=== PATIENT | male | born 1975 | race Caucasian/White ===

== ENCOUNTER 2021-04-13 17:10 | Emergency (ER) | payer BC, SELFPAY ==
--- NOTE | ~2021-04-13 | XR_ITS ---
Examination: XR sacrum coccyx min 2V, XR lumbar spine 2-3V Indication: s/p fall c pain to lower back and coccyx Comparison: 04/09/2008 Technique: 3 views of the lumbosacral spine with 3 views of the sacrum and coccyx Findings: Bones are in normal anatomic alignment. I do not appreciate any acute fracture or spondylolisthesis. There are 5 lumbar-type vertebra noted. No significant step-off. Bowel gas pattern unremarkable. XR/XR lumbar spine 2-3V Impression: No acute fracture or spondylolisthesis appreciated.
--- NOTE | ~2021-04-13 | XR_ITS ---
Examination: XR sacrum coccyx min 2V, XR lumbar spine 2-3V Indication: s/p fall c pain to lower back and coccyx Comparison: 04/09/2008 Technique: 3 views of the lumbosacral spine with 3 views of the sacrum and coccyx Findings: Bones are in normal anatomic alignment. I do not appreciate any acute fracture or spondylolisthesis. There are 5 lumbar-type vertebra noted. No significant step-off. Bowel gas pattern unremarkable. XR/XR sacrum coccyx min 2V Impression: No acute fracture or spondylolisthesis appreciated.
[2021-04-13 17:26] VITALS: BP 138/88; PULSE 90; RESP 18; TEMP 36.5; O2SAT 96; BMI 29.8
--- NOTE | 2021-04-13 17:56 | ED_ITS ---
HPI - Fall General Chief Complaint: Fall Stated Complaint: fall Time Seen by Provider: 04/13/21 17:35 Source: patient Mode of arrival: ambulatory Limitations: no limitations History of Present Illness HPI Narrative: 46-year-old male presenting to the ED with complaints of lower back pain and coccyx pain after he had a mechanical fall where he slipped and fell in [facility] earlier today on the slippery floor. He denies head injury or loss of consciousness. He denies any symptoms prior to the fall. He reports only pain after a fall no other symptoms. He is not on any blood thinners. MD complaint: fall Onset (ago): minute(s) (Earlier today prior to arrival) Fall from: standing Fall witnessed: no Place fall occurred: other Loss of consciousness: none Prolonged down time: no Symptoms prior to fall: none Context: tripped/slipped Location of injury: back and buttocks Severity: moderate Quality: aching Associated symptoms (after fall): denies Related Data Previous Rx's Medication Instructions Recorded acetaminophen 500 mg tablet 1,000 mg PO QID PRN #14 tab 04/13/21 (Tylenol Extra Strength) cyclobenzaprine 10 mg tablet 10 mg PO Q8H #10 tab 04/13/21 ibuprofen 800 mg tablet 800 mg PO Q8H PRN #14 tab 04/13/21 Allergies Allergy/AdvReac Type Severity Reaction Status Date / Time amoxicillin [Amoxicillin] Allergy Unknown HIVES Unverified 04/25/20 15:51 Review of Systems Review of Systems: Constitutional : No trauma, No Weight loss, No Fever, No Chills, ENT/Mouth : No Hearing loss, No Ear Pain, No Nasal Congestion, No Sinus Pain, No Hoarseness, No sore throat, No Rhinorrhea, No Swallowing Difficulty Cardiovascular : No Chest Pain, No SOB Respiratory : No Cough, No Dyspnea Gastrointestinal : No Nausea, No Vomiting, No Diarrhea, No abdominal Pain, No Hematochezia, No Melena Genitourinary : No Dysuria, No Urinary Frequency, No Hematuria, No Urinary or Bowel Incontinence/retention Musculoskeletal : + Back/coccyx pain/injury No neck pain, No joint stiffness, No joint swelling Skin : No Skin Lesions, No rash or signs of infection Neuro : No Weakness, No radiation, No Numbness, No Paresthesias, No headache, no loss of bowel or bladder incontinence, no saddle anesthesia, Focal weakness, No radiation Denies history of IV drug usage. Yes all other systems are reviewed and are n egative [facility] Past Medical History Attestation statement: The following information was validated with the patient. Medical History No known health problems Social History Social History Advance Directives: No Advance Directives Information Provided: No Physical Exam Vital Signs: Vital Signs: Last Vital Signs Temp 97.7 F 04/13/21 17:26 Pulse 90 04/13/21 17:26 Resp 18 04/13/21 17:26 BP 138/88 04/13/21 17: Pulse Ox 96 04/13/21 17:26 Body Mass Index 29.8 vital signs have been reviewed as normal and appeared to be correct. Blood pressure normal. Heart rate normal. Respiration rate normal. Temperature normal. Oxygen saturation normal. Appearance: Alert. Oriented X3. No acute distress. Head: Normal external exam. Normocephalic. Atraumatic. Eyes: PERRLA. EOMI. Conjunctiva and sclera normal. Eyelids normal. ENT: Pharynx normal. Uvula midline. Moist mucous membranes. Neck: Normal inspection. Neck supple. FROM. No meningeal signs. CVS: Normal heart rate and rhythm. Respiratory: No respiratory distress. Painless inspiration. Back: Full range of motion noted. No obvious deformities, or edema. Mild para- spinal muscular tenderness from lumbar region to coccyx. Full ROM in back and lower extremities. 5/5 strength hip extension/flexion, abduction, adduction. Mild Lumbar pain with hip flexion against resistance. Straight leg raise test negative on right; Straight leg raise test negative on left; Reflexes normal ankle and knee bilaterally; EHL motor strength normal bilaterally. No rashes/lesion/induration/fluctuance or signs infection noted. Skin: Skin warm and dry. Normal skin color. Normal skin turgor. No rashes/lesions/lacerations noted. Extremities: Extremities exhibit normal range of motion. Extremities nontender. Neuro: Oriented X 3. No motor deficit. No sensory deficit. Reflexes normal. Patient has a normal steady gait. Course Course Course Narrative: 46-year-old male presenting to the ED after he had a mechanical fall where he slipped and fell on slippery floor at [facility] earlier today/prior to arrival injuring his lower back/coccyx area since then has been having pain. Denies head injury or loss of consciousness or any other injuries complaints or concerns. Not on any blood thinners. X-rays obtained and negative for any acute processes only revealed chronic changes. Will DC home with symptomatic treatment and instructions return if any new or worsening symptoms to follow up with primary care provider. Patient understands agrees with this plan. MDM - Fall Medical Records Attestation: I reviewed the patient's medical records. Imaging Data Lumbar spine/coccyx x-ray: Attestation: I personally reviewed and interpreted this imaging study as follows: Radiologist's impression: Examination: XR sacrum coccyx min 2V, XR lumbar spine 2-3V Indication: s/p fall c pain to lower back and coccyx Comparison:? 04/09/2008 Technique: 3 views of the lumbosacral spine with 3 views of the sacrum and coccyx Findings: Bones are in normal anatomic alignment. I do not appreciate any acute fracture or spondylolisthesis. There are 5 lumbar-type vertebra noted. No significant step-off. Bowel gas pattern unremarkable. XR/XR sacrum coccyx min 2V Impression: No acute fracture or spondylolisthesis appreciated. Discharge Plan Discharge Clinical Impression: Fall, Lumbar strain, Strain of coccyx Patient Disposition: Home, Self-Care Instructions: Coccyx Injury (ED), Low Back Strain (ED), R.I.C.E. Treatment (ED) Prescriptions: New cyclobenzaprine 10 mg tablet 10 mg PO Q8H Qty: 10 RF: 0 ibuprofen 800 mg tablet 800 mg PO Q8H PRN (Reason: pain) Qty: 14 RF: 0 acetaminophen [Tylenol Extra Strength] 500 mg tablet 1,000 mg PO QID PRN (Reason: fever or pain) Qty: 14 RF: 0 Referrals: Physician,Unknown [Primary Care Provider] - 2 days (your pcp) Print Language: Mozambican
== END 2021-04-13 18:55 | disposition home or self-care (01) ==
PROVIDERS: Emergency Provider Internal Medicine
DX: S39.012A Strain of muscle, fascia and tendon of lower back, initial encounter (principal); M53.3 Sacrococcygeal disorders, not elsewhere classified; W01.0XXA Fall on same level from slipping, tripping and stumbling without subsequent striking against object, initial encounter; Y93.9 Activity, unspecified; Y92.511 Restaurant or cafe as the place of occurrence of the external cause; Y99.9 Unspecified external cause status; Z79.899 Other long term (current) drug therapy
CPT/HCPCS: 72100; 72220; 99283

== ENCOUNTER 2022-05-20 20:46 | Inpatient (IN) | payer BC, SELFPAY ==
--- NOTE | ~2022-05-20 | CT_ITS ---
EXAMINATION: CT ANGIOGRAM HEAD CT ANGIOGRAM NECK CLINICAL INFORMATION: Right facial droop COMPARISON: CT head without contrast 10/29/2018 TECHNIQUE: Initial noncontrast manager trading imaging of the head and neck was performed. Noncontrast head CT was also performed. Test bolus sequences followed by intravenous administration 70 mL of Omnipaque 350. Helical imaging was performed in the axial plane from the aortic arch to the skull vertex. Delayed postcontrast imaging of the head was also performed. The data was processed at the chief radiologic technologist's workstation for generation of MIP sequences. Angled MIPs and volume rendered reformatted images were also generated at an offline 3D workstation. Stenoses are assessed in accordance with NASCET criteria unless otherwise indicated. DLP: 1615 mGy-cm This CT examination was performed using dose optimization techniques as appropriate, variously including the following: *Automated exposure control. *Adjustment of mA and/or kV according to patient size (this includes techniques or standardized protocols for targeted exams where dose is matched to indication/reason for exam; i.e. extremities or head). *Use of iterative reconstruction technique. FINDINGS: CT Head: There is no evidence of acute intracranial hemorrhage or edematous territorial infarction. There is no abnormal attenuation within the brain parenchyma. Willard-white matter differentiation is preserved. The ventricles are normal in size and configuration. No evidence for obstructive hydrocephalus. No abnormal mass effect or midline shift. No extra-axial fluid collections. Left temporal lobe parenchymal calcification. No pathologic intra-axial enhancement or regional oligemia. No acute soft tissue or osseous abnormalities. Mild mucosal thickening in the alveolar recess of the right maxillary sinus. CT Neck: The thyroid gland and remaining cervical soft tissues are within normal limits. Mild degenerative changes of the cervical spine. CT Upper Chest: The visualized lung apices and upper mediastinum are within normal limits. Neck CTA: Aortic Arch: Normal contour and caliber. Classic 3 vessel branching pattern of the aortic arch. Great Vessel Origins: No significant stenosis of the branch origins. Right Common Carotid Artery: No focal stenosis or occlusion. Cervical Right Internal Carotid Artery: Normal opacification without focal stenosis or occlusion. Left Common Carotid Artery: No focal stenosis or occlusion. Cervical Left Internal Carotid Artery: Normal opacification without focal stenosis or occlusion. Cervical Right Vertebral Artery: No focal stenosis or occlusion. Cervical Left Vertebral Artery: No focal stenosis or occlusion. Brain CTA: Intracranial Internal Carotid Arteries: No focal stenosis or occlusion. Right Anterior Cerebral Artery: Normal A1 segment. Normal opacification of the distal TANA segments. Left Anterior Cerebral Artery: Normal A1 segment. Normal opacification of the distal TANA segments. Anterior Communicating Artery: Normal. Right Middle Cerebral Artery: Normal M1 segment of the MCA without focal stenosis or occlusion. Normal arborization of the distal segments. Left Middle Cerebral Artery: Normal M1 segment of the MCA without focal stenosis or occlusion. Normal arborization of the distal segments. Right Vertebral Artery: Normal V4 segment. Left Vertebral Artery: Normal V4 segment. Basilar Artery: Normal without focal stenosis or occlusion. Normal appearance of the proximal superior cerebellar arteries. Right Posterior Cerebral Artery: Normal P1 segment. Normal opacification of the distal LEAD DESIGNER segments. Left Posterior Cerebral Artery: Normal P1 segment. Normal opacification of the distal LEAD DESIGNER segments. Normal opacification of the superior sagittal, straight, transverse, and sigmoid sinuses. CT/CT head for stroke IMPRESSION: 1. No acute intracranial abnormality including hemorrhage, mass effect, hydrocephalus, or acute territorial edematous infarction. 2. No arterial high grade stenosis or large vessel occlusion in the head or neck. Above impression was communicated to Dr. Cueto on 05/20/2022 at 11:01 PM
--- NOTE | ~2022-05-20 | CT_ITS ---
EXAMINATION: CT ANGIOGRAM HEAD CT ANGIOGRAM NECK CLINICAL INFORMATION: Right facial droop COMPARISON: CT head without contrast 10/29/2018 TECHNIQUE: Initial noncontrast optical effects layout person imaging of the head and neck was performed. Noncontrast head CT was also performed. Test bolus sequences followed by intravenous administration 70 mL of Omnipaque 350. Helical imaging was performed in the axial plane from the aortic arch to the skull vertex. Delayed postcontrast imaging of the head was also performed. The data was processed at the certified surgical technologist's workstation for generation of MIP sequences. Angled MIPs and volume rendered reformatted images were also generated at an offline 3D workstation. Stenoses are assessed in accordance with NASCET criteria unless otherwise indicated. DLP: 1615 mGy-cm This CT examination was performed using dose optimization techniques as appropriate, variously including the following: *Automated exposure control. *Adjustment of mA and/or kV according to patient size (this includes techniques or standardized protocols for targeted exams where dose is matched to indication/reason for exam; i.e. extremities or head). *Use of iterative reconstruction technique. FINDINGS: CT Head: There is no evidence of acute intracranial hemorrhage or edematous territorial infarction. There is no abnormal attenuation within the brain parenchyma. Willard-white matter differentiation is preserved. The ventricles are normal in size and configuration. No evidence for obstructive hydrocephalus. No abnormal mass effect or midline shift. No extra-axial fluid collections. Left temporal lobe parenchymal calcification. No pathologic intra-axial enhancement or regional oligemia. No acute soft tissue or osseous abnormalities. Mild mucosal thickening in the alveolar recess of the right maxillary sinus. CT Neck: The thyroid gland and remaining cervical soft tissues are within normal limits. Mild degenerative changes of the cervical spine. CT Upper Chest: The visualized lung apices and upper mediastinum are within normal limits. Neck CTA: Aortic Arch: Normal contour and caliber. Classic 3 vessel branching pattern of the aortic arch. Great Vessel Origins: No significant stenosis of the branch origins. Right Common Carotid Artery: No focal stenosis or occlusion. Cervical Right Internal Carotid Artery: Normal opacification without focal stenosis or occlusion. Left Common Carotid Artery: No focal stenosis or occlusion. Cervical Left Internal Carotid Artery: Normal opacification without focal stenosis or occlusion. Cervical Right Vertebral Artery: No focal stenosis or occlusion. Cervical Left Vertebral Artery: No focal stenosis or occlusion. Brain CTA: Intracranial Internal Carotid Arteries: No focal stenosis or occlusion. Right Anterior Cerebral Artery: Normal A1 segment. Normal opacification of the distal TANA segments. Left Anterior Cerebral Artery: Normal A1 segment. Normal opacification of the distal TANA segments. Anterior Communicating Artery: Normal. Right Middle Cerebral Artery: Normal M1 segment of the MCA without focal stenosis or occlusion. Normal arborization of the distal segments. Left Middle Cerebral Artery: Normal M1 segment of the MCA without focal stenosis or occlusion. Normal arborization of the distal segments. Right Vertebral Artery: Normal V4 segment. Left Vertebral Artery: Normal V4 segment. Basilar Artery: Normal without focal stenosis or occlusion. Normal appearance of the proximal superior cerebellar arteries. Right Posterior Cerebral Artery: Normal P1 segment. Normal opacification of the distal LITIGATION LEGAL ASSISTANT segments. Left Posterior Cerebral Artery: Normal P1 segment. Normal opacification of the distal LITIGATION LEGAL ASSISTANT segments. Normal opacification of the superior sagittal, straight, transverse, and sigmoid sinuses. CT/CT angio head neck stroke IMPRESSION: 1. No acute intracranial abnormality including hemorrhage, mass effect, hydrocephalus, or acute territorial edematous infarction. 2. No arterial high grade stenosis or large vessel occlusion in the head or neck. Above impression was communicated to Dr. Cueto on 05/20/2022 at 11:01 PM
--- NOTE | ~2022-05-20 | MR_ITS ---
MRI OF THE BRAIN WITHOUT IV CONTRAST INDICATION: Stroke. COMPARISON: Head CT and CTA head and neck May 20, 2022. TECHNIQUE: Multiplanar multisequence MR imaging of the brain was obtained without IV contrast. FINDINGS: There is no hydrocephalus, extra-axial surface collection, or herniation. No parenchymal signal abnormality. The major flow voids at the skull base are preserved. There is no acute infarct on diffusion-weighted imaging. There is no intracranial hemorrhage on the gradient recalled echo acquisition. 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 The cerebellar tonsils are normally positioned. The cerebellum and brainstem are normal. The craniocervical junction is normal. Osseous marrow signal intensity is homogenous. The visualized soft tissues are unremarkable. MR/MR head/brain wo con IMPRESSION: - No acute intracranial findings. No acute infarcts. 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
[2022-05-20 22:02] VITALS: BP 139/84; PULSE 91; RESP 16; TEMP 36.6; O2SAT 96; BMI 29.1
--- NOTE | 2022-05-20 22:30 | ECG_ITS ---
Test Reason : ?STROKE Blood Pressure : / mmHG Vent. Rate : 105 BPM Atrial Rate : 105 BPM P-R Int : 162 ms QRS Dur : 090 ms QT Int : 318 ms P-R-T Axes : 041 002 -03 degrees QTc Int : 420 ms Sinus tachycardia Otherwise normal ECG No previous ECGs available Referred By: Britt Cueto Electronically Signed By:SCHUYLER RIVERA MD
--- NOTE | 2022-05-20 22:32 | ED.GENADULT ---
HPI - General Adult General Chief complaint: General Medical Stated complaint: losing movement in side of face Time Seen by Provider: 05/20/22 22:23 Source: patient Mode of arrival: ambulatory Limitations: no limitations History of Present Illness HPI narrative: Patient comes emergency room complaining numbness and tingling on the right side of the face, right-sided mouth drooping. 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 Patient denies any other motor deficits. Patient states he noticed the facial asymmetry 3 hours ago, at 19:30. Patient states that while he was in the waiting room, the facial asymmetry actually improved. Related Data Previous Rx's Medication Instructions Recorded acetaminophen 500 mg tablet 1,000 mg PO QID PRN fever or pain 04/13/21 (Tylenol Extra Strength) #14 tabs cyclobenzaprine 10 mg tablet 10 mg PO Q8H Muscle spasm #10 tabs 04/13/21 ibuprofen 800 mg tablet 800 mg PO Q8H PRN pain #14 tabs 04/13/21 Allergies Allergy/AdvReac Type Severity Reaction Status Date / Time amoxicillin [Amoxicillin] Allergy Unknown HIVES Unverified 04/25/20 15:51 Review of Systems Review of Systems: Constitutional : No Weight loss, No Fever, No Chills, No Night Sweats, No Fatigue, No Malaise ENT/Mouth : No Hearing loss, No Ear Pain, No Nasal Congestion, No Sinus Pain, No Hoarseness, No sore throat, No Rhinorrhea, No Swallowing Difficulty Eyes: No Eye Pain, No Swelling, No Redness, No Foreign Body, No Discharge, No Vision Changes Cardiovascular : No Chest Pain, No SOB, No Dyspnea on Exertion, No Orthopnea, No Edema, No Palpitations Respiratory : No Cough, No Sputum, No Wheezing, No Smoke Exposure, No Dyspnea Gastrointestinal : No Nausea, No Vomiting, No Diarrhea, No Constipation, No abdominal Pain, No Hematochezia, No Melena Genitourinary : no irregular bleeding, No Dysuria, No Urinary Frequency, No Hematuria, No Urinary Incontinence, No Urgency, No Flank Pain, No Urinary Flow Changes, No Hesitancy Musculoskeletal : No joint pain, No Myalgias, No Joint Swelling Skin : No Skin Lesions, No rash Neuro : No Weakness, numbness on the right side of the face, drooping on the right side of the face Psych : No Anxiety/Panic, No Depression, No SI/HI/AH/VH, No Social Issues, Heme/Lymph: No Bruising, No Bleeding,No Lymphadenopathy Endocrine : No Polyuria, No Polydipsia, No Temperature Intolerance [facility] Past Medical History Medical History No known health problems Social History Social History Advance Directives: No Advance Directives Information Provided: Yes Physical Exam ED Vital Signs: Vital Signs - 24 hr 05/20/22 22:02 05/20/22 23:11 Temperature 97.8 F 98.7 F Pulse Rate 91 93 Respiratory Rate 16 16 Blood Pressure 139/84 128/81 Pulse Oximetry 96 95 Oxygen Delivery Method Room Air Room Air BMI result Body Mass Index 29.1 Const Other: Appearance: Alert. Oriented X3. No acute distress. Eyes: Pupils equal, round and reactive to light. ENT: Pharynx normal. Neck: Normal inspection. Neck supple. No lymph nodes noted. No crepitus CVS: Normal heart rate and rhythm. Pulses normal. Normal S1 and S2 Respiratory: No respiratory distress. Breath sounds normal. No Wheezing. No rales Abdomen: Soft and nontender. No rigidity. No distention. Skin: Skin warm and dry. Normal skin color. Normal skin turgor. Extremities: No lower extremity edema. No Lacerations. No Rash Neuro: Oriented X 3. No motor deficit. No sensory deficit. Moving all extremities. No slurred speech. Patient has a symmetric smile, patient has [id number] mouth drooping on the right side. Patient is able to move his forehead bilaterally and wrinkles are present bilaterally. When patient is asked to close his eyes and tighten up, seems that he has more strength on the left side than the right Psych: calm, cooperative, normal affect NIH Stroke Scale Internal: Initial- Upon Arrival Level of Consciousness: Alert Level of Consciousness Questions: Answers both questions correctly Level of Consciousness Commands: Performs both tasks correctly Best Gaze: Normal Visual: No visual loss Facial Palsy: Minor paralyis Motor Arm (Right): No drift Motor Arm (Left): No drift Motor Leg (Right): No drift Motor Leg (Left): No drift Limb Ataxia: Absent Sensory: Normal Best Language: No aphasia Dysarthia: Normal Extinction and Inattention: No abnormality Score: 1 Course Course Course Narrative: Briefly, Velez's palsy affects half of the face. However, patient is able to move his eyebrow and wrinkle his forehead bilaterally, also, patient states that the mouth drooping on the right side of his face has gradually improved over the last hour. This is more concerning of a stroke rather than Velez's palsy. Patient's CT and CT I are both negative. However, patient's symptoms are slowly resolving especially the facial drooping. Also, patient is able to move his forehead on the right side and eyebrow, not as well as the left side. I discussed the patient with Dr. Henriquez, patient's NIH is 1, deficits are minimal, no need for tPA. Symptoms are overlapping between Velez's palsy and TIA. Recommendations: Admit for MRI in the morning. Also, patient is being treated for Vleez's palsy with acyclovir p.o., prednisone p.o.. Medical Decision Making Lab Data Result diagrams: 05/20/22 22:37 05/20/22 22:37 Labs: Lab Results 05/20/22 05/20/22 05/20/22 Range/Units 22:35 22:36 22:37 WBC (4.8-10.8) X10*3/uL RBC (4.60-5.80) X10*6/uL Hgb (14.0-18.0) g/dl Hct (42.0-52.0) % MCV (80.0-98.0) fL MCH (27.0-33.0) pg MCHC (31.0-36.0) g/dl RDW (11.0-16.0) % Plt Count (160-400) X10*3/uL MPV (9.4-12.4) fL Immature Gran % (Auto) (0.0-0.4) % Neut % (Auto) (45-73) % Lymph % (Auto) (20-40) % Dickenson % (Auto) (2-11) % Eos % (Auto) (0-4) % Baso % (Auto) (0-2) % Lymph # (Auto) (1.2-4.9) X10*3/uL Dickenson # (Auto) (0.1-1.2) X10*3/uL Eos # (Auto) (0.0-0.4) X10*3/uL Baso # (Auto) (0.0-0.2) X10*3/uL Abs Immat Gran (auto) (0.00-0.03) X10*3/uL Absolute Neuts (auto) (2.0-8.3) x10*3/uL Absolute Nucleated RBC (0.0-0.012) X10*3/uL Nucleated RBC % (auto) (0.0-0.2) /100WBC Whole Blood PT 12.0 (11.1-13.5) sec Whole Blood INR 1.0 (0.9-1.1) Sodium 141 (135-145) mmol/L Potassium 4.1 (3.3-5.1) mmol/L Chloride 104 (96-108) mmol/L Carbon Dioxide 25 (22-29) mmol/L Anion Gap 16 (12-20) BUN 16 (9-16) mg/dL Creatinine 0.94 (0.5-1.4) mg/dL Estim Creat Clear Calc 118.8 Estimated GFR > 60 POC Glucose 90 (60-115) mg/dL Random Glucose 96 (60-115) mg/dL Calcium 10.1 (8.4-10.2) mg/dL Total Bilirubin 1.0 (0.0-1.0) mg/dL Direct Bilirubin (0.0-0.5) mg/dL AST 17 (5-37) U/L ALT 18 (0-40) U/L Alkaline Phosphatase 67 (39-117) U/L Troponin I High Sens (<3.5-35.0) ng/L Total Protein 7.7 (6.5-8.0) g/dL Albumin 4.6 (3.5-5.0) g/dL Ethyl Alcohol mg/dL COVID-19 ([facility]) (Negative) COVID-19 Clin Com 05/20/22 05/20/22 05/20/22 Range/Units 22:37 22:37 22:37 WBC 9.5 (4.8-10.8) X10*3/uL RBC 5.20 (4.60-5.80) X10*6/uL Hgb 16.6 (14.0-18.0) g/dl Hct 48.4 (42.0-52.0) % MCV 93.1 (80.0-98.0) fL MCH 31.9 (27.0-33.0) pg MCHC 34.3 (31.0-36.0) g/dl RDW 12.8 (11.0-16.0) % Plt Count 278 (160-400) X10*3/uL MPV 10.2 (9.4-12.4) fL Immature Gran % (Auto) 0.6 H (0.0-0.4) % Neut % (Auto) 58.4 (45-73) % Lymph % (Auto) 21.0 (20-40) % Dickenson % (Auto) 13.0 H (2-11) % Eos % (Auto) 5.5 H (0-4) % Baso % (Auto) 1.5 (0-2) % Lymph # (Auto) 2.0 (1.2-4.9) X10*3/uL Dickenson # (Auto) 1.2 (0.1-1.2) X10*3/uL Eos # (Auto) 0.5 H (0.0-0.4) X10*3/uL Baso # (Auto) 0.1 (0.0-0.2) X10*3/uL Abs Immat Gran (auto) 0.06 H (0.00-0.03) X10*3/uL Absolute Neuts (auto) 5.5 (2.0-8.3) x10*3/uL Absolute Nucleated RBC 0.000 (0.0-0.012) X10*3/uL Nucleated RBC % (auto) 0.0 (0.0-0.2) /100WBC Whole Blood PT (11.1-13.5) sec Whole Blood INR (0.9-1.1) Sodium 142 (135-145) mmol/L Potassium 3.8 (3.3-5.1) mmol/L Chloride 103 (96-108) mmol/L Carbon Dioxide 27 (22-29) mmol/L Anion Gap 16 (12-20) BUN 16 (9-16) mg/dL Creatinine 0.99 (0.5-1.4) mg/dL Estim Creat Clear Calc 112.8 Estimated GFR > 60 POC Glucose (60-115) mg/dL Random Glucose 96 (60-115) mg/dL Calcium 9.9 (8.4-10.2) mg/dL Total Bilirubin 0.9 (0.0-1.0) mg/dL Direct Bilirubin 0.3 (0.0-0.5) mg/dL AST 17 (5-37) U/L ALT 18 (0-40) U/L Alkaline Phosphatase 65 (39-117) U/L Troponin I High Sens < 3.5 (<3.5-35.0) ng/L Total Protein 7.5 (6.5-8.0) g/dL Albumin 4.5 (3.5-5.0) g/dL Ethyl Alcohol mg/dL COVID-19 ([facility]) (Negative) COVID-19 Clin Com 05/20/22 05/20/22 Range/Units 22:38 22:38 WBC (4.8-10.8) X10*3/uL RBC (4.60-5.80) X10*6/uL Hgb (14.0-18.0) g/dl Hct (42.0-52.0) % MCV (80.0-98.0) fL MCH (27.0-33.0) pg MCHC (31.0-36.0) g/dl RDW (11.0-16.0) % Plt Count (160-400) X10*3/uL MPV (9.4-12.4) fL Immature Gran % (Auto) (0.0-0.4) % Neut % (Auto) (45-73) % Lymph % (Auto) (20-40) % Dickenson % (Auto) (2-11) % Eos % (Auto) (0-4) % Baso % (Auto) (0-2) % Lymph # (Auto) (1.2-4.9) X10*3/uL Dickenson # (Auto) (0.1-1.2) X10*3/uL Eos # (Auto) (0.0-0.4) X10*3/uL Baso # (Auto) (0.0-0.2) X10*3/uL Abs Immat Gran (auto) (0.00-0.03) X10*3/uL Absolute Neuts (auto) (2.0-8.3) x10*3/uL Absolute Nucleated RBC (0.0-0.012) X10*3/uL Nucleated RBC % (auto) (0.0-0.2) /100WBC Whole Blood PT (11.1-13.5) sec Whole Blood INR (0.9-1.1) Sodium (135-145) mmol/L Potassium (3.3-5.1) mmol/L Chloride (96-108) mmol/L Carbon Dioxide (22-29) mmol/L Anion Gap (12-20) BUN (9-16) mg/dL Creatinine (0.5-1.4) mg/dL Estim Creat Clear Calc Estimated GFR POC Glucose (60-115) mg/dL Random Glucose (60-115) mg/dL Calcium (8.4-10.2) mg/dL Total Bilirubin (0.0-1.0) mg/dL Direct Bilirubin (0.0-0.5) mg/dL AST (5-37) U/L ALT (0-40) U/L Alkaline Phosphatase (39-117) U/L Troponin I High Sens (<3.5-35.0) ng/L Total Protein (6.5-8.0) g/dL Albumin (3.5-5.0) g/dL Ethyl Alcohol < 10 mg/dL COVID-19 ([facility]) Negative (Negative) COVID-19 Clin Com See Note Critical Care Time Critical Care Time Critical Care Time: Yes Total Critical Care Time: 30 Attestation: I have personally provided critical care time. Time includes review of lab data, radiology results, discussion with consultants, and monitoring for potential decompensation. Intervention performed as documented. Discharge Plan Discharge Clinical Impression: Mouth droop due to facial weakness Patient Disposition: Admitted As Inpatient Prescriptions: No Action cyclobenzaprine 10 mg tablet 10 mg PO Q8H Qty: 10 0RF ibuprofen 800 mg tablet 800 mg PO Q8H PRN (Reason: pain) Qty: 14 0RF acetaminophen [Tylenol Extra Strength] 500 mg tablet 1,000 mg PO QID PRN (Reason: fever or pain) Qty: 14 0RF
[2022-05-20 22:41] LABS: Glucose, Whole Blood 90 mg/dL (60-115)
[2022-05-20 22:45] LABS: MANUAL DIFF FLAG NO
--- NOTE | 2022-05-20 22:45 | PC.NURSE ---
patient a&ox3, denies pain/discomfort, iv inserted, labs drawn, ekg performed, covid swab obtained, pt has equal police officer booking bilateral upper extremities, equal strength to bilateral lower extremities, no drift noted, pt does have rt facial droop noted.
[2022-05-20 22:46] LABS: Basophils Absolute Auto 0.1 X10*3/uL (0.0-0.2); Basophils Percent Auto 1.5 % (0-2); Eosinophils Absolute Auto 0.5 X10*3/uL (0.0-0.4); Eosinophils Percent Auto 5.5 % (0-4); Hematocrit 48.4 % (42.0-52.0); Hemoglobin 16.6 g/dl (14.0-18.0); Imm Gran Abs Auto 0.06 X10*3/uL (0.00-0.03); Imm Gran Pct Auto 0.6 % (0.0-0.4); Mean Corpuscular HGB Conc 34.3 g/dl (31.0-36.0); Mean Corpuscular Hemoglobin 31.9 pg (27.0-33.0); Mean Corpuscular Volume 93.1 fL (80.0-98.0); Mean Platelet Volume 10.2 fL (9.4-12.4); Monocytes Absolute Auto 1.2 X10*3/uL (0.1-1.2); Neutrophils Absolute Auto 5.5 x10*3/uL (2.0-8.3); Neutrophils Percent Auto 58.4 % (45-73); Platelet Count 278 X10*3/uL (160-400); Red Cell Distribution Width 12.8 % (11.0-16.0); White Blood Count 9.5 X10*3/uL (4.8-10.8)
--- NOTE | 2022-05-20 22:47 | PC.NURSE ---
pt to ct scan
[2022-05-20] MEDS: iohexoL 350 MG/ML 100 ML INFUS..BTL IV (22:49)
[2022-05-20 22:59] LABS: Ethanol < 10 mg/dL
[2022-05-20 23:03] LABS: Alanine Aminotransferase 18 U/L (0-40); Albumin Level 4.6 g/dL (3.5-5.0); Alkaline Phosphatase 67 U/L (39-117); Anion Gap 16 (12-20); Aspartate Amino Transferase 17 U/L (5-37); Blood Urea Nitrogen 16 mg/dL (9-16); Calcium 10.1 mg/dL (8.4-10.2); Carbon Dioxide 25 mmol/L (22-29); Chloride 104 mmol/L (96-108); Creatinine Clr Calc Pharmacy 118.8; Estimated Glomerular Filt Rate > 60; Glucose Random 96 mg/dL (60-115); Potassium 4.1 mmol/L (3.3-5.1); Sodium 141 mmol/L (135-145); Total Protein 7.7 g/dL (6.5-8.0)
[2022-05-20 23:04] LABS: Alanine Aminotransferase 18 U/L (0-40); Albumin Level 4.5 g/dL (3.5-5.0); Alkaline Phosphatase 65 U/L (39-117); Anion Gap 16 (12-20); Aspartate Amino Transferase 17 U/L (5-37); Bilirubin Direct 0.3 mg/dL (0.0-0.5); Bilirubin Total 0.9 mg/dL (0.0-1.0); Blood Urea Nitrogen 16 mg/dL (9-16); Calcium 9.9 mg/dL (8.4-10.2); Carbon Dioxide 27 mmol/L (22-29); Chloride 103 mmol/L (96-108); Creatinine Clr Calc Pharmacy 112.8; Estimated Glomerular Filt Rate > 60; Glucose Random 96 mg/dL (60-115); Potassium 3.8 mmol/L (3.3-5.1); Sodium 142 mmol/L (135-145); Total Protein 7.5 g/dL (6.5-8.0)
[2022-05-20 23:07] LABS: COVID-19 Test Negative (Negative)
[2022-05-20 23:10] LABS: Troponin-I High Sensitivity < 3.5 ng/L (<3.5-35.0)
[2022-05-20 23:11] VITALS: BP 128/81; PULSE 93; RESP 16; TEMP 37.1; O2SAT 95
--- NOTE | 2022-05-20 23:13 | PC.NURSE ---
[id number] WAS HOOKED UP TO DYE HOUSE SUPERVISOR BY THIS PCT .
--- NOTE | 2022-05-21 00:03 | P.HPHOSP_ITS ---
History of Present Illness Date of Service: 05/21/22 Chief Complaint: Facial droop This is a 47-year-old male with no pertinent past medical history presents to the emergency department for evaluation of facial droop. Patient states that around 19:00 on the day of presentation he noticed facial droop which was sudden in onset. No preceding symptoms. Also had some tingling numbness sensation over the face and tongue. His facial droop was right-sided with mild difficulty in speech. No focal motor deficits. No vision changes, hearing deficit, dysphagia. No history of stroke. Patient is not on prescription medications for hypertension and diabetes mellitus. States he was evaluated by medical attendant and had a stress test done, does not remember the details. 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 Patient states his symptoms improved with improvement in speech and facial droop over time. Denies fever, chills, shortness of breath, chest pain, abdominal pain, changes in urinary or bowel habits In the emergency department, neurology was consulted who recommended admission for TIA workup including MRI brain. Review of Systems Review of Systems: All 13 review of systems are negative except as noted in [facility] Medical History No known health problems Social History Advance Directives: No Advance Directives Information Provided: Yes Meds Allergies Allergy/AdvReac Type Severity Reaction Status Date / Time amoxicillin [Amoxicillin] Allergy Unknown HIVES Verified 05/21/22 00:04 Active Medications: Current Medications Acetaminophen (Acetaminophen 325 Mg Tablet) 650 mg PO Q6H PRN PRN Reason: Pain, Mild (Pain Scale 1-3) Aspirin (Aspirin 81 Mg Tab.Chew) 81 mg PO DAILY RICH Atorvastatin Calcium (Atorvastatin Calcium 40 Mg Tablet) 40 mg PO BEDTIME RICH Melatonin (Melatonin 3 Mg Tablet) 6 mg PO BEDTIME PRN PRN Reason: Insomnia Ondansetron HCl (Ondansetron Hcl 4 Mg/2 Ml Vial) 4 mg IVPUSH Q8H PRN PRN Reason: Nausea and Vomiting Pharmacy Consult (Consult Rx Perform Med Rec) 1 each MISCELLANE ONCE STA Stop: 05/20/22 23:31 Sodium Chloride (0.9 % Sodium Chloride Flush 3 Ml Syringe) 3 ml IVFLUSH QSHIFT RICH Physical Exam Vital Signs and Narrative: Vital Signs: Last Vital Signs Temp 98.7 F 05/20/22 23:11 Pulse 93 05/20/22 23:11 Resp 16 05/20/22 23:11 BP 128/81 05/20/22 23:11 Pulse Ox 95 05/20/22 23:11 O2 Del Method 05/20/22 23:11 BMI result Body Mass Index 29.1 Middle-aged male lying in bed in no distress Neck supple, no JVD Regular rate and rhythm, S1-S2 heard Regular breath sounds bilaterally, no wheezing or crackles appreciated Abdomen soft nontender, no guarding, no rigidity Patient is awake, alert and oriented to self, place, time and person ; right- sided facial droop present, no sensory loss over face, right-sided forehead sparing seen ie forehead wrinkles seen bilaterally and able to lift bilateral eyebrows, no dysarthria, no nystagmus, no ophthalmoplegia, no dysmetria, stent 5/5 in bilateral upper and lower extremity, no pronator drift Psych: Normal mood No pedal edema Results Labs CBC and Chem 7: 05/20/22 22:37 05/20/22 22:37 Labs: Laboratory Results - last 24 hr 05/20/22 05/20/22 05/20/22 22:35 22:36 22:37 MCV MCH MCHC RDW Plt Count MPV Immature Gran % (Auto) Neut % (Auto) Lymph % (Auto) Cooke % (Auto) Eos % (Auto) Baso % (Auto) Lymph # (Auto) Cooke # (Auto) Eos # (Auto) Baso # (Auto) Abs Immat Gran (auto) Absolute Neuts (auto) Absolute Nucleated RBC Nucleated RBC % (auto) Whole Blood PT 12.0 Whole Blood INR 1.0 Anion Gap 16 Estim Creat Clear Calc 118.8 Estimated GFR > 60 POC Glucose 90 Random Glucose 96 Calcium 10.1 Total Bilirubin 1.0 Direct Bilirubin AST 17 ALT 18 Alkaline Phosphatase 67 Troponin I High Sens Total Protein 7.7 Albumin 4.6 Ethyl Alcohol COVID-19 (EDITH) COVID-19 Clin Com 05/20/22 05/20/22 05/20/22 22:37 22:37 22:37 MCV 93.1 MCH 31.9 MCHC 34.3 RDW 12.8 Plt Count 278 MPV 10.2 Immature Gran % (Auto) 0.6 H Neut % (Auto) 58.4 Lymph % (Auto) 21.0 Cooke % (Auto) 13.0 H Eos % (Auto) 5.5 H Baso % (Auto) 1.5 Lymph # (Auto) 2.0 Cooke # (Auto) 1.2 Eos # (Auto) 0.5 H Baso # (Auto) 0.1 Abs Immat Gran (auto) 0.06 H Absolute Neuts (auto) 5.5 Absolute Nucleated RBC 0.000 Nucleated RBC % (auto) 0.0 Whole Blood PT Whole Blood INR Anion Gap 16 Estim Creat Clear Calc 112.8 Estimated GFR > 60 POC Glucose Random Glucose 96 Calcium 9.9 Total Bilirubin 0.9 Direct Bilirubin 0.3 AST 17 ALT 18 Alkaline Phosphatase 65 Troponin I High Sens < 3.5 Total Protein 7.5 Albumin 4.5 Ethyl Alcohol COVID-19 (EDITH) COVID-19 Clin Com 05/20/22 05/20/22 22:38 22:38 MCV MCH MCHC RDW Plt Count MPV Immature Gran % (Auto) Neut % (Auto) Lymph % (Auto) Cooke % (Auto) Eos % (Auto) Baso % (Auto) Lymph # (Auto) Cooke # (Auto) Eos # (Auto) Baso # (Auto) Abs Immat Gran (auto) Absolute Neuts (auto) Absolute Nucleated RBC Nucleated RBC % (auto) Whole Blood PT Whole Blood INR Anion Gap Estim Creat Clear Calc Estimated GFR POC Glucose Random Glucose Calcium Total Bilirubin Direct Bilirubin AST ALT Alkaline Phosphatase Troponin I High Sens Total Protein Albumin Ethyl Alcohol < 10 COVID-19 (EDITH) Negative COVID-19 Clin Com See Note Imaging Radiologist's Impressions: Impressions Head CT 05/20/22 22:47 IMPRESSION: 1. No acute intracranial abnormality including hemorrhage, mass effect, hydrocephalus, or acute territorial edematous infarction. 2. No arterial high grade stenosis or large vessel occlusion in the head or neck. Above impression was communicated to Dr. Cueto on 05/20/2022 at 11:01 PM Head/Neck CTA 05/20/22 22:51 IMPRESSION: 1. No acute intracranial abnormality including hemorrhage, mass effect, hydrocephalus, or acute territorial edematous infarction. 2. No arterial high grade stenosis or large vessel occlusion in the head or neck. Above impression was communicated to Dr. Cueto on 05/20/2022 at 11:01 PM Assessment and Plan (1) Mouth droop due to facial weakness: Status: Acute Plan This is a 47-year-old male with no pertinent past medical history presents to the emergency department for evaluation of facial droop. #. Right-sided facial droop, acute -low NIHSS however forehead sparing and improvement in symptoms including speech concerning for central etiology. Will order MRI and complete TIA workup based on Neurology recommendations. ABCD2 score less than 4, initiating single antiplatelet therapy with high-intensity statin. Appreciate Neurology assistance. May benefit from steroids if central etiology is ruled out for Velez's palsy #. Questionable history of heart murmur -patient states that he may have had a history of heart murmur. Does not have a medical attendant. Will keep on telemetry and obtaining echo (also as a part of TIA workup) DVT prophylaxis: Lovenox 40 mg daily Full code Diet: Regular diet Admitting as inpatient for concern for TIA. Quality Stroke Does the patient have a stroke diagnosis?: No VTE Prior VTE?: No VTE Risk Level:: Medical - low VTE Device Contraindication: Treatment Not Indicated VTE Drug Contraindication: N/A - Med Ordered
[2022-05-21] MEDS: Acyclovir 200 MG CAPSULE 400 MG PO (00:05)
[2022-05-21] MEDS: predniSONE 20 MG TABLET 60 MG PO ×2 (00:05→16:39)
[2022-05-21] MEDS: 0.9 % Sodium Chloride Flush 3 ML SYRINGE IVFLUSH ×2 (00:07→10:38)
--- NOTE | 2022-05-21 00:40 | PC.NURSE ---
Pt refused atorvastatin and Lovenox, stated that he doesn't take meds for his cholesterol at home and he would like to discuss it with his PCP before taking this med. Pt did not completely understand the meaning purpose of the Lovenox but was still reluctant to receive the med after this RN informed the pt that the med was used to prevent blood clots because pts are at an increased risk to develop clots while they are laying in bed for extended periods of time throughout the day.
[2022-05-21 02:26] VITALS: BP 140/72; PULSE 89; RESP 18; TEMP 37.1; O2SAT 98
[2022-05-21 04:00] VITALS: BP 116/63; PULSE 65; RESP 18; TEMP 37; O2SAT 98
[2022-05-21 05:14] LABS: Estimated Average Glucose 97 mg/dL
[2022-05-21] MEDS: Acetaminophen 325 MG TABLET 650 MG PO (05:48)
--- NOTE | 2022-05-21 07:00 | CA_ITS ---
Transthoracic Echocardiogram Patient (Last, First, Middle): Osito Barahona M Gender: Male Date of : 1975 Age: 47 Procedure Date: 05/21/2022 Procedure Type: Transthoracic [place] [facility] [place]: 182.88 cm Weight: 97.52 kg BSA: 2.20 m2 Heart Rate: bpm BP: 116 / 63 mmHg Software Maintenance Engineer: SB Referring MD: Abraham Nguyen MD Symptoms: TIA Study Quality: Adequate ECG Rhythm: Sinus Conclusions: - The left ventricular systolic function is low normal. The visually estimated ejection fraction is between 50-55%. - There is no evidence of interatrial shunt by agitated saline. - No obvious valvular pathology seen on this study. Findings Left Ventricle Normal left ventricular cavity size. There is normal left ventricular wall thickness. The left ventricular systolic function is low normal. The visually estimated ejection fraction is between 50-55%. There is no evidence of regional wall motion abnormalities. Diastolic function is normal for age. Right Ventricle Normal right ventricular cavity size and systolic function. Atria Both atria are normal in size. There is no evidence of interatrial shunt by agitated saline. Bubble study negative during rest and valsalva. Aortic Valve There is a normal trileaflet aortic valve. There is no aortic valve stenosis. There is no aortic valve regurgitation. Mitral Valve The mitral valve appears normal. There is no mitral valve regurgitation. There is no mitral valve stenosis. Pulmonic Valve The pulmonic valve is likely normal. Tricuspid Valve Normal tricuspid valve structure. There is no tricuspid valve regurgitation. Tricuspid regurgitation envelope is inadequate for calculation of right ventricular systolic pressure. Great Vessels The aortic annulus, sinuses of valsalva, and asc aorta are normal in size. Venous The inferior vena cava is normal in size and collapses greater than 50% with inspiration. Pericardium/Pleural There is no evidence of pericardial effusion. Prior Study Comparison No prior study available for comparison. Recommendations, Care & Conclusions No obvious valvular pathology seen on this study. Measurements 2D Linear Measurements IVSd: 0.91 0.6-0.9/0.6-1.0 cm LVIDd: 5.76 3.9-5.3/4.2-5.9 cm LVIDd Index: 2.62 2.4-3.2/2.2-3.1 cm/m2 LVIDs: 3.85 2.0-3.6 cm LVPWd: 0.85 0.7-1.1 cm LA Diam: 3.60 2.7-3.8/3.0-4.0 cm LAIDs Index: 1.64 1.5-2.3 cm/m2 LV Mass: 244.23 67-162/88-224 g LV Mass Index: 111.01 43-95/49-115 g/m2 LVOT Diam: 2.30 3.0+(-)1.3 cm 2D Systolic Function EF 4C: 52.40 >55% EF 2C: 50.20 >55% EF BiP: 50.10 >55% Mitral Valve MV Pk E: 0.58 MV PK A: 0.67 MV Decel Time: 107.00 E/A: 0.90 E'Lateral: 10.80 E'Medial: 7.72 E/E' Med: 7.60 E/E' Lat: 5.40 PHT: 31.00 MVA PHT: 7.10 Decel Gage: 5.44 Aortic Valve AoV Pk Erickson: 1.56 AoV Mn Erickson: 1.14 AoV VTI: 0.26 AoV Pk Grad: 10.00 Aov Mn Grad: 6.00 ARLEEN Cont.VTI: 2.89 LVOT LVOT Pk Erickson: 1.16 LVOT Mn Erickson: 0.74 LVOT VTI: 0.18 LVOT Pk Grad: 5.00 LVOT Mn Grad: 3.00 LVOT Diam: 2.30 LVOT Area: 4.15 Diastolic Function MV Pk E: 0.58 MV Pk A: 0.67 E/A: 0.90 E'Medial: 7.72 E/E' Med: 7.60 E' Laterial: 10.80 E/E' Lat: 5.40 Right Ventricle TAPSE (mm): 21.90 TVS' Erickson: 17.70 Tricuspid Valve RA Press: 3.00 Great Vessels Aorta Sinus of Valsalva: 3.00 2.0-3.5 cm Ao Asc: 3.10 2.1-3.4 cm Pulmonary Veins Pulm Vein S/D 1.30 Pulmonary Valve PV Pk Erickson: 1.40 Peak PV Grad: 8.00 Updated in Other Vendor System with Status of Final Kel Aviles MD electronically signed on 05/21/2022 3:24:30 PM with status of Final
[2022-05-21 07:13] LABS: Cholesterol 274 mg/dL; HDL Cholesterol 48 mg/dL; LDL Cholesterol Calculated 205 mg/dl; Triglycerides 105 mg/dL
[2022-05-21 07:31] VITALS: BP 135/78; PULSE 85; RESP 20; TEMP 36.6; O2SAT 96
[2022-05-21] MEDS: Aspirin 81 MG TAB.CHEW PO (10:37)
--- NOTE | 2022-05-21 11:49 | MHC.CM.PN ---
CM MET WITH PT. LIVES IN SINGLE FAMILY HOME WITH AND SONS. INDEPENDENT AT BASELINE, NO DME OR SERVICES CURRENTLY. DOES NOT HAVE A HCP AND DECLINES TO DO ONE AT THIS TIME. NO COVID VAX. PCP AT [facility], UNSURE IF HAS ESTABLISHED PROVIDER SINCE [facility] RETIRED. WILL VERIFY. [facility] WILL TRANSP[place] HOME [place]
[2022-05-21 14:40] VITALS: BP 125/71; PULSE 86; RESP 20; TEMP 36.9; O2SAT 95
[2022-05-21 15:54] VITALS: BP 131/80; PULSE 92; RESP 19; TEMP 36.7; O2SAT 92
--- NOTE | 2022-05-21 16:15 | P.CNNE_ITS ---
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 He was having a headache and then started having pain in the back of right ear and then he noticed right- sided facial weakness. He denied any change in taste or hearing. There was no change in speech or any other symptom. He denied any recent cold or flu-like illness. Review of Systems Review of Systems: No recent cold or flu-like symptom PMFSH Past Medical History Medical History No known health problems Social History Social History Household Members: Spouse and Children Housing: House Do you presently have visiting nurse or other home services: No Patient Tobacco Use Status: Never used Tobacco service: No Current occupational status: employed Meds Allergies Allergy/AdvReac Type Severity Reaction Status Date / Time amoxicillin [Amoxicillin] Allergy Unknown HIVES Verified 05/21/22 00:04 Active Medications: Current Medications Acetaminophen (Acetaminophen 325 Mg Tablet) 650 mg PO Q6H PRN PRN Reason: Pain, Mild (Pain Scale 1-3) Last Admin: 05/21/22 05:48 Dose: 650 mg Aspirin (Aspirin 81 Mg Tab.Chew) 81 mg PO DAILY [facility] Last Admin: 05/21/22 10:37 Dose: 81 mg Atorvastatin Calcium (Atorvastatin Calcium 40 Mg Tablet) 40 mg PO BEDTIME [facility] Last Admin: 05/21/22 00:37 Dose: Not Given Enoxaparin Sodium (Enoxaparin Sodium 40 Mg/0.4 Ml Syringe) 40 mg SUBCUT Q24H [facility] Last Admin: 05/21/22 00:38 Dose: Not Given Melatonin (Melatonin 3 Mg Tablet) 6 mg PO BEDTIME PRN PRN Reason: Insomnia Ondansetron HCl (Ondansetron Hcl 4 Mg/2 Ml Vial) 4 mg IVPUSH Q8H PRN PRN Reason: Nausea and Vomiting Prednisone (Prednisone 20 Mg Tablet) 60 mg PO ONCE ONE Stop: 05/21/22 16:14 Sodium Chloride (0.9 % Sodium Chloride Flush 3 Ml Syringe) 3 ml IVFLUSH QSHIFT [facility] Last Admin: 05/21/22 10:38 Dose: 3 ml Home Medications Medication Instructions Recorded Confirmed Last Taken Type No Known Home Meds 05/21/22 05/21/22 Unknown History Physical Exam Vital Signs: Vital Signs: Last Vital Signs Temp 98.1 F 05/21/22 15:54 Pulse 92 05/21/22 15:54 Resp 19 05/21/22 15:54 BP 131/80 05/21/22 15:54 Pulse Ox 92 05/21/22 15:54 O2 Del Method 05/21/22 15:54 FiO2 96 05/21/22 15:54 BMI result Body Mass Index 29.1 Neuro: Other: Alert and awake with normal spontaneity of speech fluency comprehension and affect. There was mild to moderate right-sided peripheral type facial weakness with not able to close his eye completely and forehead flatness. Tongue was midline. Visual hernandez are full to confrontation. There was no pronator drift. Results Labs CBC & Chem 7: 05/20/22 22:37 05/20/22 22:37 Labs: Short CBC 05/20/22 Range/Units 22:37 WBC 9.5 (4.8-10.8) X10*3/uL Hgb 16.6 (14.0-18.0) g/dl Hct 48.4 (42.0-52.0) % Plt Count 278 (160-400) X10*3/uL BMP 05/20/22 05/20/22 22:37 22:37 Sodium 141 142 Potassium 4.1 3.8 Chloride 104 103 Carbon Dioxide 25 27 BUN 16 16 Creatinine 0.94 0.99 Calcium 10.1 9.9 Liver Function 05/20/22 05/20/22 Range/Units 22:37 22:37 Total Bilirubin 1.0 0.9 (0.0-1.0) mg/dL Direct Bilirubin 0.3 (0.0-0.5) mg/dL AST 17 17 (5-37) U/L ALT 18 18 (0-40) U/L Alkaline Phosphatase 67 65 (39-117) U/L Albumin 4.6 4.5 (3.5-5.0) g/dL MRI brain without contrast and CTA of brain and neck did not reveal any significant pathology Assessment and Plan (1) Velez's palsy: Status: Acute 47 years old man with right-sided peripheral type facial weakness suggestive of Velez's palsy. Mainstay of management is prednisone 60 mg a day for 2-3 days and then slow taper with and antiviral drugs such as valacyclovir. I would also recommend testing for Lyme disease. He should address issue of hyperlipidemia with his primary care physician. He was educated about Velez's palsy and its typical recovery. (2) Hyperlipidemia: Status: Acute Procedures Date of Service Date of Service: 05/21/22
--- NOTE | 2022-05-21 16:24 | P.DS_ITS ---
DS: Providers Provider Date of Service: 05/21/22 Date of admission: 05/20/22 23:55 Date of discharge: 05/21/22 Primary care physician: Unknown Physician Consults: 05/20/22 23:57 Consult to Neurology Routine Consulting Provider: Shaji Henriquez Reason for consultation: facial droop Attending physician on discharge: Jani Johnson Discharging clinician: Dora Gannon DS: Diagnosis Discharge Diagnosis (1) Velez's palsy: Status: Acute (2) Hyperlipidemia: Status: Acute DS: Summary Hospital Course Hospital Course: From H&P on day of admission This is a 47-year-old male with no pertinent past medical history presents to the emergency department for evaluation of facial d radha.? Patient states that around 19:00 on the day of presentation he noticed facial droop which was sudden in onset.? No preceding symptoms.? Also had some tingling numbness sensation over the face and tongue.? His facial droop was right-sided with mild difficulty in speech.? No focal motor deficits.? No vision changes, hearing deficit, dysphagia.? No history of stroke.? Patient is not on prescription medications for hypertension and diabetes mellitus.? States he was evaluated by [facility] and had a stress test done, does not remember the details.? 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 Patient states his symptoms improved with improvement in speech and facial droop over time.? Denies fever, chills, shortness of breath, chest pain, abdominal pain, changes in urinary or bowel habits In the emergency department, neurology was consulted who recommended admission for TIA workup including MRI brain Right facial weakness, symptoms c/w Velez's palsy. Patient had MRI of brain which was negative for acute stroke. He was seen by Neurology who agreed with assessment of Velez's palsy. He was started on oral prednisone and valacyclovir and should complete 7 day course of each. Recommended to patch eye at night and use eyedrops p.r.n. during the day to prevent eye drying. Lipid profile was obtained and LDL was 205. LFTs were checked and were normal and he was started on atorvastatin 40 mg and should follow up with PCP. Lyme panel was obtained and is pending at the time of discharge. Time Spent with Patient Time attestation: Total time spent providing and/or coordinating discharge services: Discharge coordination time: Greater than 30 minutes Quality: Safe Use of Opioids Does Pt have an Active Cancer Diagnosis on the Problem List?: No Quality: Stroke Does the patient have a stroke diagnosis?: No Physical Exam Vital Signs: Vital Signs: Last Vital Signs Temp 98.1 F 05/21/22 15:54 Pulse 92 05/21/22 15:54 Resp 19 05/21/22 15:54 BP 131/80 05/21/22 15:54 Pulse Ox 92 05/21/22 15:54 O2 Del Method 05/21/22 15:54 FiO2 96 05/21/22 15:54 BMI result Body Mass Index 29.1 DS: Data Data Completed and Pending Labs on day of discharge: Laboratory Results - last 24 hr 05/20/22 05/20/22 05/20/22 22:35 22:36 22:37 WBC RBC Hgb Hct MCV MCH MCHC RDW Plt Count MPV Immature Gran % (Auto) Neut % (Auto) Lymph % (Auto) Roane % (Auto) Eos % (Auto) Baso % (Auto) Lymph # (Auto) Roane # (Auto) Eos # (Auto) Baso # (Auto) Abs Immat Gran (auto) Absolute Neuts (auto) Absolute Nucleated RBC Nucleated RBC % (auto) Whole Blood PT 12.0 Whole Blood INR 1.0 Sodium 141 Potassium 4.1 Chloride 104 Carbon Dioxide 25 Anion Gap 16 BUN 16 Creatinine 0.94 Estim Creat Clear Calc 118.8 Estimated GFR > 60 POC Glucose 90 Random Glucose 96 Estimat Average Glucose Hemoglobin A1c % Calcium 10.1 Total Bilirubin 1.0 Direct Bilirubin AST 17 ALT 18 Alkaline Phosphatase 67 Troponin I High Sens Total Protein 7.7 Albumin 4.6 Triglycerides Cholesterol LDL Cholesterol, Calc HDL Cholesterol Ethyl Alcohol COVID-19 ([facility]) COVID-19 Clin Com 05/20/22 05/20/22 05/20/22 22:37 22:37 22:37 WBC 9.5 RBC 5.20 Hgb 16.6 Hct 48.4 MCV 93.1 MCH 31.9 MCHC 34.3 RDW 12.8 Plt Count 278 MPV 10.2 Immature Gran % (Auto) 0.6 H Neut % (Auto) 58.4 Lymph % (Auto) 21.0 Roane % (Auto) 13.0 H Eos % (Auto) 5.5 H Baso % (Auto) 1.5 Lymph # (Auto) 2.0 Roane # (Auto) 1.2 Eos # (Auto) 0.5 H Baso # (Auto) 0.1 Abs Immat Gran (auto) 0.06 H Absolute Neuts (auto) 5.5 Absolute Nucleated RBC 0.000 Nucleated RBC % (auto) 0.0 Whole Blood PT Whole Blood INR Sodium 142 Potassium 3.8 Chloride 103 Carbon Dioxide 27 Anion Gap 16 BUN 16 Creatinine 0.99 Estim Creat Clear Calc 112.8 Estimated GFR > 60 POC Glucose Random Glucose 96 Estimat Average Glucose Hemoglobin A1c % Calcium 9.9 Total Bilirubin 0.9 Direct Bilirubin 0.3 AST 17 ALT 18 Alkaline Phosphatase 65 Troponin I High Sens < 3.5 Total Protein 7.5 Albumin 4.5 Triglycerides Cholesterol LDL Cholesterol, Calc HDL Cholesterol Ethyl Alcohol COVID-19 ([facility]) COVID-19 [employer] 05/20/22 05/20/22 05/21/22 22:38 22:38 00:34 WBC RBC Hgb Hct MCV MCH MCHC RDW Plt Count MPV Immature Gran % (Auto) Neut % (Auto) Lymph % (Auto) Roane % (Auto) Eos % (Auto) Baso % (Auto) Lymph # (Auto) Roane # (Auto) Eos # (Auto) Baso # (Auto) Abs Immat Gran (auto) Absolute Neuts (auto) Absolute Nucleated RBC Nucleated RBC % (auto) Whole Blood PT Whole Blood INR Sodium Potassium Chloride Carbon Dioxide Anion Gap BUN Creatinine Estim Creat Clear Calc Estimated GFR POC Glucose Random Glucose Estimat Average Glucose 97 Hemoglobin A1c % 5.0 Calcium Total Bilirubin Direct Bilirubin AST ALT Alkaline Phosphatase Troponin I High Sens Total Protein Albumin Triglycerides Cholesterol LDL Cholesterol, Calc HDL Cholesterol Ethyl Alcohol < 10 COVID-19 ([facility]) Negative COVID-19 [employer] Com See Note 05/21/22 06:46 WBC RBC Hgb Hct MCV MCH MCHC RDW Plt Count MPV Immature Gran % (Auto) Neut % (Auto) Lymph % (Auto) Roane % (Auto) Eos % (Auto) Baso % (Auto) Lymph # (Auto) Roane # (Auto) Eos # (Auto) Baso # (Auto) Abs Immat Gran (auto) Absolute Neuts (auto) Absolute Nucleated RBC Nucleated RBC % (auto) Whole Blood PT Whole Blood INR Sodium Potassium Chloride Carbon Dioxide Anion Gap BUN Creatinine Estim Creat Clear Calc Estimated GFR POC Glucose Random Glucose Estimat Average Glucose Hemoglobin A1c % Calcium Total Bilirubin Direct Bilirubin AST ALT Alkaline Phosphatase Troponin I High Sens Total Protein Albumin Triglycerides 105 Cholesterol 274 LDL Cholesterol, Calc 205 HDL Cholesterol 48 Ethyl Alcohol COVID-19 ([facility]) COVID-19 Clin Com Discharge Plan Discharge Anticipated Discharge Date/Time: 05/21/22 16:15 Patient Disposition: Home, Self-Care Discharge Diagnosis: Velez's Palsy Referrals: Physician,Unknown J [Primary Care Provider] - 1 Week Discharge Medications: New prednisone 20 mg tablet 60 mg PO DAILY 5 Days Qty: 15 0RF valacyclovir 1 gram tablet 1,000 mg PO TID 7 Days Qty: 21 0RF omeprazole 20 mg capsule,delayed release(DR/EC) 20 mg PO DAILY 7 Days Qty: 7 0RF polyvinyl alcohol [Artificial Tears (polyvin alc)] 1.4 % drops 1 drp ophthalmic (eye) Q1H PRN (Reason: dry eye(s)) Qty: 15 0RF Rx Instructions: while awake atorvastatin [Lipitor] 40 mg tablet 40 mg PO BEDTIME 30 Days Qty: 30 0RF Discharge Orders: Discharge Order (Routine); Ordered 05/21/22 Ordered By: Dora Gannon Activity on Discharge: As tolerated Stand Alone Forms: Patient Portal Discharge page Care Plan Goals: see below Health Concerns: Velez's Palsy - brain MRI was negative, no evidence of stroke Elevated cholesterol Plan of Treatment: complete course of steroids - take with food, take prilosec daily for duration of steroid use complete course of valacyclovir patch eye at night to prevent eye from drying; can use artifical tears during the daily as needed for dry eye- can get patches OTC at drug store start taking atorvastatin for elevated LDL cholesterol of 205 - will need follow up with PCP call to schedule follow up with PCP Assessment: see discharge summary Patient Instructions: Prednisone (By mouth), Omeprazole (By mouth), Valacyclovir (By mouth), Atorvastatin (By mouth), Velez Palsy (GEN), Hyperlipidemia (GEN) Discharge Date/Time: 05/21/22 17:15
[2022-05-21] MEDS: valACYclovir HCL 1,000 MG TABLET 1000 MG PO (16:47)
[2022-05-25 21:47] LABS: Lyme Abs Screen <0.90 index
== END 2022-05-21 17:15 | disposition home or self-care (01) | DRG 48 ==
LOC: HO.ED 23:28 → HO.EDOVER 23:59 → HO.IMC 05-21 01:09
PROVIDERS: Admitting Provider Student in an Organized Health Care Education/Training Program; Emergency Provider Emergency Medicine; Visit Provider Physician Assistant Medical
DX: G51.0 Bell's palsy (principal); E78.5 Hyperlipidemia, unspecified; Z20.822 Contact with and (suspected) exposure to COVID-19; Z88.0 Allergy status to penicillin
CPT/HCPCS: 36415; 70450; 70496; 70498; 70551; 80048; 80053; 80061; 80076; 82077; 82947; 83036; 84484; 85025; 85610; 86617; 86618; 87635; 93005; 93306; 99285; Q9967